=== PATIENT | male | born 1985 | race Caucasian/White ===

== ENCOUNTER 2022-10-29 22:22 | Emergency (ER) | payer OTHER ==
[~2022-10-29] VITALS: Ht 182.9 cm; Wt 84.0 kg
[2022-10-29 23:11] VITALS: TEMP 97.8; O2SAT 97
[2022-10-30] MEDS ORDERED: TOPUD MT (01:58)
[2022-10-30] MEDS ORDERED: KETOROLAC 30MG/ML VIAL IM ONE (02:15)
[2022-10-30 02:19] VITALS: BP 114/68; PULSE 71; RESP 18
== END 2022-10-30 02:10 | disposition home or self-care (01) ==
LOC: ER 22:35
DX: S02.2XXA Fracture of nasal bones, initial encounter for closed fracture (principal); S00.83XA Contusion of other part of head, initial encounter; Y08.89XA Assault by other specified means, initial encounter; Y93.89 Activity, other specified; Y92.89 Other specified places as the place of occurrence of the external cause; Y99.8 Other external cause status
CPT/HCPCS: 99285; 70450; 70486; 96372; J1885; Z7610